=== PATIENT | male | born 1955 | race Caucasian/White ===

== ENCOUNTER 2023-11-03 11:05 | Emergency (ER) | payer MEDICAID ==
[2023-11-03 11:52] LABS: Hematocrit 41.6 % (42.0-52.0); Hemoglobin 12.5 g/dL (14.0-18.0); Mean Corpuscular Hemoglobin 28.7 pg (27.0-31.0); Mean Corpuscular Volume 95.5 fl (78.0-98.0); Mean Platelet Volume 7.3 fL (7.4-10.4); Platelet Count 267 10x3/uL (130-400); RBC Distribution Width 13.5 % (11.5-14.5); Red Blood Cell (RBC) Count 4.36 mill/uL (4.70-6.10); White Blood Cell (WBC) Count 9.6 10x3/uL (4.8-10.8)
[2023-11-03] MEDS ORDERED: Acetaminophen 500 MG TAB ONE (11:54)
[2023-11-03 12:04] LABS: ALT (SGPT) 14 U/L (8-55); AST (SGOT) 21 U/L (5-34); Albumin 4.1 g/dL (3.4-4.8); Alkaline Phosphatase 74 U/L (40-110); Anion Gap 14 mmol/L (10-20); BUN (Urea Nitrogen) 15 mg/dL (8.4-25.7); Bilirubin, Total 0.8 mg/dL (0.2-1.2); Calc. Creatinine Clearance 0 mL/min (70-130); Carbon Dioxide 22 mmol/L (23-31); Chloride 101 mmol/L (98-107); Estimated GFR 96; Globulin 2.9 g/dL (2.4-3.5); Glucose 88 mg/dL (80-115); Potassium 4.1 mmol/L (3.5-5.1); Sodium 133 mmol/L (136-145)
[2023-11-03 12:07] LABS: Troponin I Less than 0.010 ng/mL (< 0.028)
[2023-11-03 12:14] LABS: Anisocytosis SLIGHT = 6-15 cells (100X) (0-5/hpf); Band 1 % (5-11); Eosinophils 3 % (0-10); Lymphocytes 16 % (21-51); MDiff Complete? YES; Manual Diff?? YES; Monocytes 9 % (0-10); Neutrophil 71 % (42-75); Platelet Adequacy Comment Appears Adequate
== END 2023-11-03 12:25 | disposition home or self-care (01) ==
LOC: MADERS 11:05
DX: R07.89 Other chest pain (principal); E78.00 Pure hypercholesterolemia, unspecified; E03.9 Hypothyroidism, unspecified; I10 Essential (primary) hypertension; Z79.899 Other long term (current) drug therapy
CPT/HCPCS: 36415; 71045; 80053; 84484; 85025; 93005

== ENCOUNTER 2023-11-05 16:25 | Emergency (ER) | payer MEDICAID | END 2023-11-05 17:08 | disposition left against medical advice (07) | LOC: MADERS 16:25 | DX: R47.1 Dysarthria and anarthria (principal); R29.701 NIHSS score 1; I10 Essential (primary) hypertension | CPT/HCPCS: 36416; 70450 ==

== ENCOUNTER 2024-02-01 10:24 | Emergency (ER) | payer OTHER ==
[~2024-02-01 10:24] MED LIST: Iopamidol 370 76% 100 ML VIAL ONE; Sodium Chloride 0.9% 100 ML BAG ONE
[2024-02-01] MEDS ORDERED: Aspirin Chewable 81 MG TAB ONE (10:39)
[2024-02-01] MEDS ORDERED: Mag-Al 1200 mg/1200 mg/30 ML UDCUP ONE (10:40)
[2024-02-01] MEDS ORDERED: Lidocaine Viscous Sol 2% 15 ml UD Cup ONE (10:40)
[2024-02-01] MEDS ORDERED: Pantoprazole 40 MG VIAL ONE (10:40)
[2024-02-01 10:59] LABS: Band 4 % (5-11); Hematocrit 48.3 % (42.0-52.0); Lymphocytes 22 % (21-51); MDiff Complete? YES; Mean Corpuscular Hemoglobin 28.8 pg (27.0-31.0); Mean Corpuscular Volume 92.7 fl (78.0-98.0); Mean Platelet Volume 7.9 fL (7.4-10.4); Monocytes 9 % (0-10); Neutrophil 62 % (42-75); Platelet Adequacy Comment Appears Adequate; Platelet Count 248 10x3/uL (130-400); RBC Distribution Width 12.9 % (11.5-14.5); Red Blood Cell (RBC) Count 5.21 mill/uL (4.70-6.10); White Blood Cell (WBC) Count 12.2 10x3/uL (4.8-10.8)
[2024-02-01 11:04] LABS: ALT (SGPT) 14 U/L (8-55); AST (SGOT) 26 U/L (5-34); Albumin 4.2 g/dL (3.4-4.8); Alkaline Phosphatase 75 U/L (40-110); Anion Gap 16 mmol/L (10-20); BUN (Urea Nitrogen) 21 mg/dL (8.4-25.7); Bilirubin, Total 0.8 mg/dL (0.2-1.2); Calc. Creatinine Clearance 0 mL/min (70-130); Calcium 9.5 mg/dL (7.8-10.44); Carbon Dioxide 19 mmol/L (23-31); Chloride 103 mmol/L (98-107); Estimated GFR 78; Globulin 3.6 g/dL (2.4-3.5); Glucose 89 mg/dL (80-115); Lipase 77 U/L (8-78); Protein, Total 7.8 g/dL (5.8-8.1); Sodium 134 mmol/L (136-145); Troponin I Less than 0.010 ng/mL (< 0.028)
[2024-02-01 11:36] LABS: Bilirubin Negative (Negative); Blood, Urine Negative (Negative); Glucose, Urine (Dipstick) Negative (Negative); Ketone, Urine Trace mg/dL (Negative); Leukocyte Negative (Negative); Nitrite Negative (Negative); Protein, Urine (Dipstick) 30 mg/dL (Neg-Trace); pH, Urine 8.5 (5.0-9.0)
[2024-02-01 11:37] LABS: Clarity Hazy (Clear)
[2024-02-01 11:44] LABS: Amphetamine Not Detected (NotDetected); Barbiturates Screen Not Detected (NotDetected); Benzodiazepine Screen Not Detected (NotDetected); Cocaine Metabolite Screen Not Detected (NotDetected); Methadone Not Detected (NotDetected); Methamphetamine Not Detected (NotDetected); Opiate Screen Not Detected (NotDetected); Oxycodone Screen Not Detected (NotDetected); Phencyclidine (PCP) Not Detected (NotDetected); THC/Cannabinoid Screen Detected (NotDetected); Tricyclic Screen Not Detected (NotDetected)
[2024-02-01 11:45] LABS: Bacteria/HPF Rare-Few HPF (None Seen); CAUTI Indications for Culture Dysuria,urgency,freq; RBC/HPF None Seen HPF (0-3); Squamous Epithelial 0-3 HPF (0-3); WBC/HPF 0-3 HPF (0-3)
[2024-02-01 11:46] LABS: Urine Culture Reflex No No
== END 2024-02-01 13:20 | disposition home or self-care (01) ==
LOC: MADERS 10:24
DX: I26.99 Other pulmonary embolism without acute cor pulmonale (principal); I10 Essential (primary) hypertension; E03.9 Hypothyroidism, unspecified; K21.9 Gastro-esophageal reflux disease without esophagitis; Z79.899 Other long term (current) drug therapy
CPT/HCPCS: 71045; 71275; 80053; 80306; 81001; 83690; 83880; 84484; 85025; 85379; 93005; 96374; J2470; Q9967

== ENCOUNTER 2024-03-13 08:33 | Emergency (ER) | payer MEDICAID, OTHER ==
[2024-03-13] MEDS ORDERED: Iopamidol 370 76% 100 ML VIAL ONE (09:00)
[2024-03-13] MEDS ORDERED: Sodium Chloride 0.9% 100 ML BAG ONE (09:00)
[2024-03-13] MEDS ORDERED: Sucralfate 1 GM TAB ONE (09:12)
[2024-03-13] MEDS ORDERED: Ondansetron PF 4 MG/2 ML Vial ONE (09:12)
[2024-03-13] MEDS ORDERED: Mag-Al 1200 mg/1200 mg/30 ML UDCUP ONE (09:12)
[2024-03-13] MEDS ORDERED: Lidocaine Viscous Sol 2% 15 ml UD Cup ONE (09:12)
[2024-03-13] MEDS ORDERED: Famotidine/PF 20 mg/2ml Vial ONE (09:13)
[2024-03-13 09:55] LABS: Band 8 % (5-11); Eosinophils 4 % (0-10); Hematocrit 51.6 % (42.0-52.0); Hemoglobin 15.7 g/dL (14.0-18.0); Lymphocytes 20 % (21-51); MDiff Complete? YES; Mean Corpuscular HGB CONC 30.5 g/dL (32.0-36.0); Mean Corpuscular Hemoglobin 28.7 pg (27.0-31.0); Mean Corpuscular Volume 94.1 fl (78.0-98.0); Mean Platelet Volume 7.2 fL (7.4-10.4); Monocytes 11 % (0-10); Neutrophil 57 % (42-75); Platelet Adequacy Comment Appears Adequate; Platelet Count 233 10x3/uL (130-400); RBC Distribution Width 13.3 % (11.5-14.5); Red Blood Cell (RBC) Count 5.48 mill/uL (4.70-6.10); White Blood Cell (WBC) Count 10.4 10x3/uL (4.8-10.8)
[2024-03-13 10:01] LABS: ALT (SGPT) 14 U/L (8-55); AST (SGOT) 34 U/L (5-34); Alkaline Phosphatase 72 U/L (40-110); Anion Gap 17 mmol/L (10-20); BUN (Urea Nitrogen) 26 mg/dL (8.4-25.7); Bilirubin, Total 0.7 mg/dL (0.2-1.2); Calc. Creatinine Clearance 0 mL/min (70-130); Calcium 9.3 mg/dL (7.8-10.44); Carbon Dioxide 19 mmol/L (23-31); Chloride 105 mmol/L (98-107); Estimated GFR 74; Glucose 105 mg/dL (80-115); Lipase 22 U/L (8-78); Sodium 137 mmol/L (136-145); Troponin I Less than 0.010 ng/mL (< 0.028)
== END 2024-03-13 11:52 | disposition home or self-care (01) ==
LOC: MADERS 08:33
DX: K20.90 Esophagitis, unspecified without bleeding (principal); I77.4 Celiac artery compression syndrome; R10.13 Epigastric pain; R11.2 Nausea with vomiting, unspecified; I10 Essential (primary) hypertension; K21.9 Gastro-esophageal reflux disease without esophagitis; E78.00 Pure hypercholesterolemia, unspecified; Z79.899 Other long term (current) drug therapy
CPT/HCPCS: 36415; 71045; 71275; 74174; 80053; 83605; 83690; 84484; 85025; 85379; 93005; 94760; 96374; 96375; J2405; J3490; Q9967

== ENCOUNTER 2024-05-18 08:10 | Emergency (ER) | payer MEDICAID, OTHER ==
[2024-05-18] MEDS ORDERED: Mag-Al 1200 mg/1200 mg/30 ML UDCUP ONE ×2 (08:34→12:16)
[2024-05-18] MEDS ORDERED: Lidocaine Viscous Sol 2% 15 ml UD Cup ONE ×2 (08:34→12:16)
[2024-05-18] MEDS ORDERED: Morphine 4 MG/ML VIAL ONE (08:34)
[2024-05-18 08:54] LABS: ALT (SGPT) 19 U/L (8-55); AST (SGOT) 52 U/L (5-34); Albumin 4.2 g/dL (3.4-4.8); Alkaline Phosphatase 70 U/L (40-110); Anion Gap 18 mmol/L (10-20); BUN (Urea Nitrogen) 22 mg/dL (8.4-25.7); Bilirubin, Total 0.8 mg/dL (0.2-1.2); Calc. Creatinine Clearance 0 mL/min (70-130); Calcium 9.8 mg/dL (7.8-10.44); Carbon Dioxide 20 mmol/L (23-31); Chloride 101 mmol/L (98-107); Estimated GFR 56; Globulin 3.6 g/dL (2.4-3.5); Glucose 85 mg/dL (80-115); Lipase 25 U/L (8-78); Potassium 3.9 mmol/L (3.5-5.1); Protein, Total 7.8 g/dL (5.8-8.1); Sodium 135 mmol/L (136-145)
[2024-05-18 08:56] LABS: Troponin I Less than 0.010 ng/mL (< 0.028)
[2024-05-18] MEDS ORDERED: Iopamidol 370 76% 100 ML VIAL ONE (09:00)
[2024-05-18 09:08] LABS: Band 4 % (5-11); Hematocrit 51.7 % (42.0-52.0); Hemoglobin 16.6 g/dL (14.0-18.0); MDiff Complete? YES; Manual Diff?? YES; Mean Corpuscular HGB CONC 32.2 g/dL (32.0-36.0); Mean Corpuscular Hemoglobin 29.5 pg (27.0-31.0); Mean Corpuscular Volume 91.7 fl (78.0-98.0); Mean Platelet Volume 7.6 fL (7.4-10.4); Neutrophil 55 % (42-75); Platelet Count 352 10x3/uL (130-400); RBC Distribution Width 12.6 % (11.5-14.5); Red Blood Cell (RBC) Count 5.64 mill/uL (4.70-6.10); White Blood Cell (WBC) Count 8.5 10x3/uL (4.8-10.8)
[2024-05-18 09:09] LABS: Anisocytosis SLIGHT = 6-15 cells (100X) (0-5/hpf); Eosinophils 1 % (0-10); Lymphocytes 35 % (21-51); Monocytes 5 % (0-10); Platelet Adequacy Comment Appears Adequate
[2024-05-18 09:59] LABS: Bilirubin Small (Negative); Blood, Urine Negative (Negative); Clarity Clear (Clear); Glucose, Urine (Dipstick) Negative (Negative); Ketone, Urine 40 mg/dL (Negative); Leukocyte Negative (Negative); Nitrite Negative (Negative); Protein, Urine (Dipstick) 30 mg/dL (Neg-Trace); Specific Gravity, Urine 1.015 (1.005-1.030); pH, Urine 6.5 (5.0-9.0)
[2024-05-18 10:06] LABS: Bacteria/HPF Rare-Few HPF (None Seen); CAUTI Indications for Culture Pelvic or flank pain; RBC/HPF 0-3 HPF (0-3); Squamous Epithelial 0-3 HPF (0-3); WBC/HPF 0-3 HPF (0-3)
[2024-05-18 10:07] LABS: Urine Culture Reflex No No
[2024-05-18] MEDS ORDERED: Sucralfate 1 GM TAB ONE (12:59)
== END 2024-05-18 13:05 | disposition home or self-care (01) ==
LOC: MADERS 08:10
DX: K29.70 Gastritis, unspecified, without bleeding (principal); E03.9 Hypothyroidism, unspecified; K21.9 Gastro-esophageal reflux disease without esophagitis; E78.00 Pure hypercholesterolemia, unspecified; I10 Essential (primary) hypertension; Z79.899 Other long term (current) drug therapy
CPT/HCPCS: 71260; 74177; 80053; 81001; 83605; 83690; 83880; 84484; 85025; 93005; 96374; J2272; Q9967

== ENCOUNTER 2025-02-28 18:59 | Emergency (ER) | payer MEDICARE, MEDICAID ==
[2025-02-28] MEDS ORDERED: Dicyclomine 10 MG CAP ONE (19:21)
== END 2025-02-28 19:25 | disposition home or self-care (01) ==
LOC: MADERS 18:59
DX: R19.7 Diarrhea, unspecified (principal); R11.2 Nausea with vomiting, unspecified; I10 Essential (primary) hypertension
CPT/HCPCS: 99283; Q0162

== ENCOUNTER 2025-03-02 20:13 | Emergency (ER) | payer MEDICARE, MEDICAID ==
[~2025-03-02 20:13] MED LIST changes: -Sodium Chloride 0.9% 100 ML BAG ONE
[2025-03-02] MEDS ORDERED: Ondansetron PF 4 MG/2 ML Vial ONE (20:25)
[2025-03-02 20:39] LABS: Hematocrit 47.4 % (42.0-52.0); Hemoglobin 16.0 g/dL (14.0-18.0); MDiff Complete? YES; Mean Corpuscular Hemoglobin 30.5 pg (27.0-31.0); Mean Corpuscular Volume 90.2 fl (78.0-98.0); Platelet Count 304 10x3/uL (130-400); Red Blood Cell (RBC) Count 5.25 mill/uL (4.70-6.10); White Blood Cell (WBC) Count 9.5 10x3/uL (4.8-10.8)
[2025-03-02 20:52] LABS: ALT (SGPT) 13 U/L (Less than 45); AST (SGOT) 45 U/L (11-34); Albumin 4.0 g/dL (3.1-4.5); Alkaline Phosphatase 57 U/L (40-110); Anion Gap 21 mmol/L (10-20); BUN (Urea Nitrogen) 24 mg/dL (8.4-25.7); Bilirubin, Total 0.7 mg/dL (0.3-1.2); Calc. Creatinine Clearance 0 mL/min (70-130); Calcium 9.3 mg/dL (7.8-10.44); Carbon Dioxide 14 mmol/L (23-31); Chloride 103 mmol/L (98-107); Globulin 4.1 g/dL (2.4-3.5); Glucose 73 mg/dL (83-110); Lipase 24 U/L (8-78); Potassium 3.9 mmol/L (3.5-5.1); Sodium 134 mmol/L (136-145)
[2025-03-02 20:53] LABS: Troponin I Less than 0.010 ng/mL (< 0.028)
[2025-03-02 22:27] LABS: Anion Gap 16 mmol/L (10-20); BUN (Urea Nitrogen) 23 mg/dL (8.4-25.7); Calc. Creatinine Clearance 0 mL/min (70-130); Calcium 8.6 mg/dL (7.8-10.44); Carbon Dioxide 18 mmol/L (23-31); Chloride 104 mmol/L (98-107); Glucose 65 mg/dL (83-110); Potassium 3.8 mmol/L (3.5-5.1); Sodium 134 mmol/L (136-145)
== END 2025-03-02 23:07 | disposition home or self-care (01) ==
LOC: MADERS 20:13
DX: K52.9 Noninfective gastroenteritis and colitis, unspecified (principal); R11.2 Nausea with vomiting, unspecified; R10.33 Periumbilical pain; I10 Essential (primary) hypertension
CPT/HCPCS: 74177; 80048; 80053; 83690; 84484; 85025; 93005; J2405; J7030; 36415; 96361; 96374; Q9967

== ENCOUNTER 2025-03-04 10:56 | Emergency (ER) | payer MEDICAID ==
[2025-03-04] MEDS ORDERED: Acetaminophen 325 MG TAB ONE (11:27)
[2025-03-04 11:46] LABS: #Basophils 0.1 thou/uL (0.0-0.2); #Eosinophils 0.4 thou/uL (0.0-0.7); #Lymphocytes 2.7 thou/uL (1.20-3.40); #Monocytes 0.6 thou/uL (0.11-0.59); #Neutrophils 2.6 thou/uL (1.40-6.50); %Basophils 1.9 % (0.0-1.0); %Eosinophils 5.9 % (0.0-10.0); %Lymphocytes 42.4 % (21.0-51.0); %Monocytes 9.9 % (0.0-10.0); %Neutrophils 39.9 % (42.0-75.0); Hematocrit 42.1 % (42.0-52.0); Hemoglobin 14.3 g/dL (14.0-18.0); Mean Corpuscular Hemoglobin 31.1 pg (27.0-31.0); Mean Corpuscular Volume 91.5 fl (78.0-98.0); Platelet Count 302 10x3/uL (130-400); Red Blood Cell (RBC) Count 4.60 mill/uL (4.70-6.10); White Blood Cell (WBC) Count 6.4 10x3/uL (4.8-10.8)
[2025-03-04 12:06] LABS: ALT (SGPT) 13 U/L (Less than 45); AST (SGOT) 43 U/L (11-34); Albumin 3.8 g/dL (3.1-4.5); Alkaline Phosphatase 50 U/L (40-110); Anion Gap 18 mmol/L (10-20); BUN (Urea Nitrogen) 19 mg/dL (8.4-25.7); Bilirubin, Total 0.6 mg/dL (0.3-1.2); Calc. Creatinine Clearance 0 mL/min (70-130); Calcium 9.3 mg/dL (7.8-10.44); Carbon Dioxide 16 mmol/L (23-31); Chloride 104 mmol/L (98-107); Globulin 3.7 g/dL (2.4-3.5); Glucose 75 mg/dL (83-110); Lipase 21 U/L (8-78); Magnesium 1.7 mg/dL (1.6-2.6); Potassium 3.5 mmol/L (3.5-5.1); Sodium 134 mmol/L (136-145)
== END 2025-03-04 14:53 | disposition home or self-care (01) ==
LOC: MADERS 10:56
DX: S80.02XA Contusion of left knee, initial encounter (principal); M25.512 Pain in left shoulder; E86.0 Dehydration; I10 Essential (primary) hypertension; W19.XXXA Unspecified fall, initial encounter
CPT/HCPCS: 36415; 70450; 72125; 72170; 80053; 83690; 83735; 85025; 96360; J7120; Q0162

== ENCOUNTER 2025-03-17 08:04 | Emergency (ER) | payer MEDICARE, MEDICAID ==
[2025-03-17] MEDS ORDERED: Acetaminophen 500 MG TAB ONE (08:35)
== END 2025-03-17 09:48 | disposition home or self-care (01) ==
LOC: MADERS 08:04
DX: M25.552 Pain in left hip (principal); M79.652 Pain in left thigh; I10 Essential (primary) hypertension; W19.XXXA Unspecified fall, initial encounter
CPT/HCPCS: 72131; 72192

== ENCOUNTER 2025-05-02 09:12 | Emergency (ER) | payer MEDICARE, MEDICAID | END 2025-05-02 09:45 | disposition home or self-care (01) | LOC: MADERS 09:12 | DX: Z76.0 Encounter for issue of repeat prescription (principal); E27.1 Primary adrenocortical insufficiency; E27.8 Other specified disorders of adrenal gland | CPT/HCPCS: 99283 ==